=== PATIENT | female | born 1980 | race Caucasian/White ===

== ENCOUNTER → 2019-10-09 13:48 | Outpatient (CLI) | payer BC, SELFPAY ==
--- NOTE | ~2019-10-09 | MMUS_ITS ---
EXAMINATION: MM diagnostic [place] LT w jaylin, US breast LT limited HISTORY: Left breast pain TECHNIQUE: ML, MLO and cc 3-D tomosynthesis images of the left breast were performed and synthetic 2- D images were generated. CAD analysis was submitted and interpreted. High resolution targeted left br east ultrasound was performed. COMPARISON: 02/05/2015 diagnostic left digital mammogram and complete left breast ultrasound examinati on BREAST PARENCHYMAL COMPOSITION: There are scattered areas of fibroglandular density. FINDINGS: MAMMOGRAPHIC FINDINGS: No suspicious mass or architectural distortion, malignant calcification, skin thickening or retractio n or significant new or developing density is detected. ULTRASOUND: There is no evidence of focal abnormal solid or cystic lesion or suspicious shadowing in the area of clinical complaint of left breast pain at 3:00. IMPRESSION: 1. No mammographic evidence of malignancy 2. Routine annual mammographic screening is recommended. BI-RADS Category 1: Negative Reviewed, dictated and finalized at location A. [facility] [employer] IMPRESSION: 1. No mammographic evidence of malignancy 2. Routine annual mammographic screening is recommended. BI-RADS Category 1: Negative
== END ==
PROVIDERS: PCP Family Medicine; Visit Provider Obstetrics & Gynecology
DX: N64.4 Mastodynia (principal)
CPT/HCPCS: 76642; 77061; 77065; G0279

== ENCOUNTER → 2019-11-28 10:29 | Outpatient (CLI) | payer BC, SELFPAY ==
--- NOTE | ~2019-11-28 | XR_ITS ---
XR ankle LT 2V DATE: 11/28/2019 11:12 INDICATION: Left ankle pain TECHNIQUE: AP and lateral views COMPARISON: None FINDINGS: No fracture or dislocation of the ankle or disruption of the ankle mortise. No periosteal r eaction or bone destruction. IMPRESSION: Negative Reviewed, dictated and finalized at location B. IMPRESSION: Negative
--- NOTE | ~2019-11-28 | XR_ITS ---
XR sacroiliac joints min 3V DATE: 11/28/2019 11:12 INDICATION: Sacroiliac pain TECHNIQUE: AP and oblique views COMPARISON: None FINDINGS: Normal sacroiliac joints. No erosive change or ankylosis. IMPRESSION: Negative Reviewed, dictated and finalized at Location A. Reviewed, dictated and finalized at location B. IMPRESSION: Negative
--- NOTE | ~2019-11-28 | XR_ITS ---
XR foot RT 2V DATE: 11/28/2019 11:12 INDICATION: Right foot pain TECHNIQUE: AP and lateral views COMPARISON: None FINDINGS: Hallux valgus and bunion deformity. No fracture, dislocation, periosteal reaction or bone destruction. IMPRESSION: Hallux valgus and bunion deformity Reviewed, dictated and finalized at location B.
--- NOTE | ~2019-11-28 | XR_ITS ---
XR wrist RT 2V DATE: 11/28/2019 11:12 INDICATION: Right wrist pain TECHNIQUE: AP and lateral views COMPARISON: None FINDINGS: No fracture or dislocation, periosteal reaction or bone destruction, joint space narrowing, erosive change or chondrocalcinosis. IMPRESSION: Negative Reviewed, dictated and finalized at location B. IMPRESSION: Negative
--- NOTE | ~2019-11-28 | XR_ITS ---
XR foot LT 2V DATE: 11/28/2019 11:12 INDICATION: Left foot pain TECHNIQUE: AP and lateral views COMPARISON: None FINDINGS: Hallux valgus and bunion deformity. No fracture, dislocation, periosteal reaction or bone destruction. No erosive change. IMPRESSION: Hallux valgus and bunion deformity Reviewed, dictated and finalized at location B.
--- NOTE | ~2019-11-28 | XR_ITS ---
XR wrist LT 2V DATE: 11/28/2019 11:12 INDICATION: Left wrist pain TECHNIQUE: AP and lateral views COMPARISON: None FINDINGS: No fracture, dislocation, periosteal reaction or bone destruction, joint space narrowing, e rosive change or chondrocalcinosis. IMPRESSION: Negative Reviewed, dictated and finalized at location B. IMPRESSION: Negative
--- NOTE | ~2019-11-28 | XR_ITS ---
XR hand LT 2V DATE: 11/28/2019 11:12 INDICATION: Left hand pain TECHNIQUE: AP and lateral views COMPARISON: None FINDINGS: No fracture, dislocation, periosteal reaction or bone destruction, erosive change or chondr ocalcinosis. Joint spaces are preserved. IMPRESSION: Negative Reviewed, dictated and finalized at location B. IMPRESSION: Negative
--- NOTE | ~2019-11-28 | XR_ITS ---
XR chest 2V DATE: 11/28/2019 11:12 INDICATION: Polyarticular arthralgia. Myalgia. Malaise, fatigue. TECHNIQUE: PA and lateral views COMPARISON: 01/25/2015 CT pulmonary scan FINDINGS: Normal heart size. No hilar or mediastinal enlargement. No pulmonary infiltrate or consolid ation, pleural effusion or pulmonary vascular congestion or pneumothorax. Included skeletal structure s are unremarkable. IMPRESSION: Negative Reviewed, dictated and finalized at location B. IMPRESSION: Negative
--- NOTE | ~2019-11-28 | XR_ITS ---
XR ankle RT 2V DATE: 11/28/2019 11:12 INDICATION: Right ankle pain TECHNIQUE: 2 views COMPARISON: None FINDINGS: No fracture or dislocation of the ankle or disruption of the ankle mortise. No periosteal r eaction or bone destruction. IMPRESSION: Negative Reviewed, dictated and finalized at location B. IMPRESSION: Negative
--- NOTE | ~2019-11-28 | XR_ITS ---
XR hand RT 2V DATE: 11/28/2019 11:12 INDICATION: Right hand pain TECHNIQUE: AP and lateral views COMPARISON: None FINDINGS: No fracture, dislocation, periosteal reaction or bone destruction, joint space narrowing, e rosive change or chondrocalcinosis. IMPRESSION: Negative Reviewed, dictated and finalized at location B. IMPRESSION: Negative
== END ==
PROVIDERS: PCP Family Medicine; Visit Provider Internal Medicine Rheumatology
DX: M79.10 Myalgia, unspecified site (principal); R53.81 Other malaise; R53.83 Other fatigue; M20.12 Hallux valgus (acquired), left foot; M20.11 Hallux valgus (acquired), right foot
CPT/HCPCS: 71046; 72202; 73100; 73120; 73600; 73620

== ENCOUNTER → 2020-04-21 14:19 | Outpatient (CLI) | payer BC, SELFPAY ==
--- NOTE | ~2020-04-21 | MR_ITS ---
EXAMINATION: MR wrist LT wo/w con DATE: 04/21/2020 15:24 INDICATION: Multiple joint pain. Left hand pain and swelling. TECHNIQUE: Magnetic resonance imaging (MRI) of the wrist was performed without and with 20 mL MultiHa nce intravenous contrast. Sequences included axial T1-weighted FS FSE, axial and coronal T2-weighted FS FSE, and axial, coronal, and sagittal T1-weighted FSE, PD-weighted FS FSE, and postcontrast T1-carlos ghted FS FSE. COMPARISON: Left wrist radiographs 11/28/2019 FINDINGS: Intrinsic ligaments: Scapholunate ligament and lunotriquetral ligament are intact. Triangular fibrocartilage complex (TFCC): Triangular fibrocartilage is intact. Extensor wrist: The extensor tendons are normal. Flexor wrist: The flexor tendons are normal. Median nerve is normal. Guyon's canal: Ulnar nerve is normal. Bones/other: Bone alignment is normal. No fracture. There is a 3 mm lesion of increased T2-weighted signal intensi ty in triquetrum that may be an enchondroma. The joint spaces are normal. There is no enhancing synov itis. There is a skin marker at the palmar hand without local abnormality. IMPRESSION: 1. No arthritis or synovitis. Reviewed, dictated and finalized at location B.
[2020-04-21 14:41] LABS: Estimated Glomerular Filt Rate > 60
== END ==
DX: M25.50 Pain in unspecified joint (principal); R79.82 Elevated C-reactive protein (CRP); M79.89 Other specified soft tissue disorders; M79.642 Pain in left hand
CPT/HCPCS: 73223; A9577

== ENCOUNTER 2020-06-21 20:45 | Observation (INO) | payer BC, SELFPAY ==
[2020-06-21] VITALS (17 sets, daily range): BP systolic 105–133; BP diastolic 38–98; PULSE 69–92; RESP 18–20; TEMP 36.1; O2SAT 98–100
--- NOTE | ~2020-06-21 | XR_ITS ---
XR abdomen obstructive series DATE: 06/23/2020 06:52 INDICATION: Bowel obstruction TECHNIQUE: Portable supine and upright AP views COMPARISON: 06/22/2020 Portable KUB for NG tube 06/21/[address] abdomen pelvis FINDINGS: Surgical clips overlie the left upper quadrant. Surgical clips overlie the right upper quad rant, consistent with cholecystectomy. No evidence of bowel obstruction. There is a prominent amount fecal material in the left colon. The p soas shadows are intact. No visceromegaly is evident. No intraperitoneal free air is detected. Heart size appears normal. The lung bases appear clear. Mild thoracic and lumbar scoliosis. IMPRESSION: Postoperative changes No evidence of bowel obstruction or intraperitoneal free air Reviewed, dictated and finalized at Location A. Reviewed, dictated and finalized at location A.
--- NOTE | ~2020-06-21 | XR_ITS ---
EXAMINATION: XR abdomen NG/feed tube insert DATE: 06/22/2020 00:03 INDICATION: Nasogastric tube insertion TECHNIQUE: A supine view of the abdomen and lower chest was obtained for evaluation of feeding tube placement. COMPARISON: CT dated 06/21/2020 FINDINGS: Is a gastric tube tip in proximal side port in the proximal body of the stomach which remains distend ed with gas and debris. No dilated loops of gas-filled bowel to suggest obstruction. Cholecystectomy clips in the right upper quadrant, likely dropped clip in the right lower quadrant and several additi onal surgical clips in the left upper quadrant. Lung bases are clear. Heart size is normal. Mild lumb ar dextrocurvature. IMPRESSION: 1. Nasogastric tube in the stomach. Reviewed, dictated and finalized at location A.
--- NOTE | ~2020-06-21 | CT_ITS ---
EXAMINATION: CT abdomen pelvis w con DATE: 06/21/2020 21:56 INDICATION: Epigastric pain. TECHNIQUE: Computed tomography (CT) of the abdomen and pelvis was performed with 100 mL Omnipaque-350 intravenous contrast. Automated exposure control and iterative reconstruction technique were employe d. The dose-length product was 1032.23 mGy-cm. COMPARISON: 08/01/2018 FINDINGS: Lung bases are clear. Heart size is normal. No pericardial or pleural effusion. Small region of focal hepatic steatosis along the ligamentum teres. Cholecystectomy clips at the gallbladder fossa. 1.7 cm right renal cyst. 2 mm nonobstructing stone in the mid right kidney. Left kidney is normal. Pancreas and bilateral adrenal glands. Splenomegaly measuring 15.7 cm in craniocaudal length. There are sever al surgical clips along a region of architectural distortion to the wall of the gastric antrum sugges ting prior surgery this appears to result in some narrowing of the lumen, unclear whether fixed or tr ansient. There is however distention of the more proximal gastric body which is filled with fluid and debris and suggests possibility of some degree of obstruction at the level of the surgical changes. Moderate amount of stool scattered throughout the colon. No abnormal bowel wall thickening or dilated bowel to suggest obstruction. Normal appendix. Bladder, retroverted uterus and bilateral adnexa are unremarkable. Low density likely contraceptive ring at the vaginal vault. Small fat-containing umbili neha hernia. A few scattered small bone islands in the sacrum and pelvis. IMPRESSION: 1. 2 mm nonobstructing right renal stone. 2. Distention of the gastric body proximal to a region of architectural distortion with surgical clip s and resulting in some luminal narrowing at the gastric antrum and could not extrude some degree of obstruction at this level. Correlate with surgical history. Could consider further evaluation with en doscopy as clinically indicated. Reviewed, dictated and finalized at location A. IMPRESSION: 1. 2 mm nonobstructing right renal stone. 2. Distention of the gastric body proximal to a region of architectural distort ion with surgical clips and resulting in some luminal narrowing at the gastric antrum and could not extrude some degree of obstruction at this level. Correlat e with surgical history. Could consider further evaluation with endoscopy as cl inically indicated.
--- NOTE | 2020-06-21 21:19 | PC.NURSE ---
Urine bedside test was done. Test is negative. Patient's RN notified of this result. Unable to chart this in the EMR. Blood and urine were sent to the lab at this time. Lab was notified that urine is coming down with [facility] patient label but does not have scannable label. Unable to gunner the urine as collected in the EMR so unable to print specimen labels in [facility]. Mala from [facility] was also called and notified that urine was unable to be charted in the EMR but that the test was negative and the patient would be able to go to CT.
[2020-06-21 21:23] LABS: Basophils Absolute Auto 0.1 K/mm3 (0.0-0.1); Basophils Percent Auto 0.6 % (0.2-1.2); Eosinophils Absolute Auto 0.3 K/mm3 (0-0.3); Eosinophils Percent Auto 2.6 % (0-4.4); Hematocrit 40.3 % (37.0-47.0); Hemoglobin 13.5 g/dL (12.0-15.0); Immature Granulocyte Absolute 0.05 K/mm3 (0.00-0.031); Immature Granulocyte Percent A 0.5 % (0-0.5); Lymphocytes Absolute Auto 3.32 K/mm3 (0.9-3.2); Lymphocytes Percent Auto 34.4 % (18.3-44.2); Mean Corpuscular HGB Conc 33.5 g/dl (32-36); Mean Corpuscular Hemoglobin 30.1 pg (26-34); Mean Platelet Volume 10.4 fl (7.4-10.4); Monocytes Absolute Auto 0.6 K/mm3 (0.1-0.6); Monocytes Percent Auto 5.8 % (2.6-8.5); Neutrophils Absolute Auto 5.4 K/mm3 (1.3-6.7); Neutrophils Percent Auto 56.1 % (45.5-73.1); Platelet Count Result 236 k/mm3 (150-375); Red Blood Count 4.48 M/mm3 (4.2-5.4); Red Cell Distribution Width 12.7 % (11.5-14.5); White Blood Count 9.7 K/mm3 (4.5-10.0)
--- NOTE | 2020-06-21 21:25 | ED.ABDPAIN ---
HPI - Abdominal Pain General Chief Complaint: Abdominal Pain Stated Complaint: upper abdominal pain to left flank Time Seen by Provider: 06/21/20 21:02 Source: RN notes reviewed History of Present Illness HPI narrative: Patient presents emergency department from home for abdominal pain. Patient states that for the past 1 month every evening proximally 2 hours after eating she has pain in her left upper abdomen with radiation around to her flank. Is associated with nausea and vomiting. Patient has a history of a gastric sleeve placed by GI at [facility] the beginning of April. She has been seeing her GI who has been working her up for the symptoms and had lab work ordered Tuesday that is not been done at this time. Patient states she is taken no previous pain medication or nausea medication at home. She denies any fevers or chills chest pain shortness of breath or any other symptoms. Related Data Allergies Allergy/AdvReac Type Severity Reaction Status Date / Time hydrocodone Allergy Intermediate Hives Verified 06/21/20 22:11 oseltamivir Allergy Intermediate Difficulty Verified 06/21/20 22:11 Breathing oxycodone Allergy Intermediate Hives Verified 06/21/20 22:11 Penicillins Allergy Intermediate Hives Verified 06/21/20 22:11 Review of Systems Review of Systems: Narrative: Gen.: Denies fevers or chills ENT: Denies congestion Respiratory: Denies shortness of breath or cough CV: Denies chest pain or palpitations GI: See HPI denies burning, urgency, frequency or hematuria Musculoskeletal: Denies back pain or muscle pain Neuro: Denies numbness, tingling, weakness or focal weakness Skin: Denies rash Except as documented, all other systems reviewed and negative [facility] Past Medical History Medical History (Updated 06/22/20 @ 03:12 by Florentino Dubon DO) Migraines Family History Family History (Updated 04/13/10 @ 13:18 by DOCTOR UNKNOWN) Other Diabetes mellitus Family history of cardiovascular disease Family history of malignant neoplasm Family history of osteoarthritis Family history of transient ischemic attacks Social History Social History (Updated 06/21/20 @ 21:26 by Florentino Dubon DO) Smoking status: Never smoker Alcohol intake: current Exam Narrative: Exam Narrative: APPEARANCE: No acute distress, nontoxic, resting in bed HEENT: Normocephalic, atraumatic, OMM RESPIRATORY: No respiratory distress, clear to auscultation bilaterally with no rhonchi wheezing or rales CARDIOVASCULAR: RRR s murmur ABDOMINAL: Soft, nondistended, tender palpation right upper quadrant left upper quadrant, no tenderness right lower quadrant left lower quadrant no rebound or guarding MUSCULOSKELETAl: Moves all extremities. No clubbing, cyanosis or edema. NEURO: Awake and alert. Following commands, speech normal, no focal deficits SKIN:: Warm, dry. Normal Color PSYCHIATRIC: Normal affect/mood Course Course Emergency Course: Patient is followed by GI Dr. Mauricio at [facility]. Called and discussed with GI on-call Dr. Mikael Lambert who accepts patient to his service at [place]. Request patient have NG placed at this time With patient plan for transfer my discussion with GI in agreement at this time Patient with NG tube placed in the emergency department. The patient is unable to tolerate the NG tube. Having anxiety attack tearful crying wanting to out. The patient was given Ativan with no relief. Patient states slightly shaky the NG tube is if we sedate her. Discussed with the patient's risks and benefits of the NG tube as well as my conversations with GI. Discussed risk of aspiration has continued nausea vomiting. At this time patient patient requesting to have his NG tube after risks and benefits discussed with the patient and will removed at this time 06/22/201914 care turned back over to myself at shift change patient seen evaluate myself resting in bed does note some mild abdominal pain. Awaiti
[2020-06-21] MEDS: SODIUM CHLORIDE 0.9% IV 1,000 ML 999 ML IV CONT (21:27)
[2020-06-21] MEDS: ONDANSETRON INJ 4 MG/2 ML VIAL IV PUSH (21:27)
[2020-06-21 21:36] LABS: Add Urine Microscopic? NO; Alanine Aminotransferase 14 U/L (4-35); Albumin Level 4.1 g/dL (3.5-5.1); Alkaline Phosphatase 82 U/L (38-126); Anion Gap 9 mmol/L (8-16); Appearance Urine Clear (Clear); Aspartate Amino Transferase 17 U/L (14-36); Bilirubin Urine Negative (Negative); Bilirubin,Total 0.2 mg/dL (0.2-1.3); Blood Urea Nitrogen 14 mg/dL (7-17); Blood Urine Negative (Negative); Calcium 9.3 mg/dL (8.4-10.2); Carbon Dioxide 28 mmol/L (22-30); Chloride 102 mmol/L (98-107); Color Urine Yellow (Yellow); Estimated CRCL calculation 119 ml/min; Estimated Glomerular Filt Rate > 60; Glucose 154 mg/dL (65-105); Glucose Urine UA Negative (Negative); Ketones Urine Negative (Negative); Leukocyte Esterase Ur Negative LEU/UL (Negative); Lipase 118 U/L (23-300); Nitrate Urine Negative (Negative); Potassium 3.6 mmol/L (3.4-5.0); Protein Urine Negative (Negative); Sodium 139 mmol/L (137-145); Urobilinogen Urine Negative mg/dL (<2.0)
[2020-06-21] MEDS: PROMETHAZINE HCL 25 MG/ML AMPUL 12.5 MG IV PUSH (22:33)
[2020-06-21] MEDS: MORPHINE SULFATE (*CRX) 4 MG/ML INJ IV PUSH (22:34)
[2020-06-22] VITALS (44 sets, daily range): BP systolic 83–152; BP diastolic 45–88; PULSE 67–99; RESP 16–20; O2SAT 93–100
[2020-06-22] MEDS: LORazepam INJ (*CRX) 2 MG/ML VIAL 0.5 MG IV PUSH (00:06)
--- NOTE | 2020-06-22 00:55 | PC.NURSE ---
Pt very anxious and crying over having the NG tube in. After conversation with the dr about the risks, the pt wanted the NG tube removed.
[2020-06-22] MEDS: SODIUM CHLORIDE 0.9% IV 1,000 ML 125 ML IV CONT ×2 (04:49→16:35)
[2020-06-22] MEDS: HYDROmorphone HCL INJ (*CRX) 1 MG/ML SYR 0.5 MG IV PUSH ×2 (07:50→20:24)
--- NOTE | 2020-06-22 10:35 | PC.NURSE ---
called [facility] to touch base about an availble bed. at this time there is no bed. they are waiting on discharges for an open bed
--- NOTE | 2020-06-22 11:17 | PC.NURSE ---
Resting on cart. Awaiting bed at [facility].
[2020-06-22] MEDS: ONDANSETRON INJ 4 MG/2 ML VIAL IV PUSH (12:42)
--- NOTE | 2020-06-22 13:03 | PC.NURSE ---
called [facility] to find out about a bed. still no bed available
[2020-06-22] MEDS: PANTOPRAZOLE SODIUM IV 40 MG VIAL IV PUSH (20:24)
[2020-06-23] MEDS: LORazepam INJ (*CRX) 2 MG/ML VIAL 0.5 MG IV PUSH (01:13)
--- NOTE | 2020-06-23 02:54 | PC.NURSE ---
called [facility] to inquire about the Bed. Still waiting.
[2020-06-23 04:53] VITALS: BP 106/72; PULSE 62; RESP 16; O2SAT 99
[2020-06-23 06:38] VITALS: BP 102/68; PULSE 78; RESP 16; O2SAT 98
[2020-06-23 07:22] LABS: Alanine Aminotransferase 11 U/L (4-35); Albumin Level 3.2 g/dL (3.5-5.1); Alkaline Phosphatase 75 U/L (38-126); Anion Gap 6 mmol/L (8-16); Aspartate Amino Transferase 16 U/L (14-36); Bilirubin,Total 0.2 mg/dL (0.2-1.3); Blood Urea Nitrogen 6 mg/dL (7-17); Calcium 8.1 mg/dL (8.4-10.2); Carbon Dioxide 24 mmol/L (22-30); Chloride 108 mmol/L (98-107); Estimated CRCL calculation 161 ml/min; Estimated Glomerular Filt Rate > 60; Glucose 93 mg/dL (65-105); Potassium 3.6 mmol/L (3.4-5.0); Sodium 138 mmol/L (137-145)
[2020-06-23 07:29] LABS: Basophils Percent Auto 0.4 % (0.2-1.2); Eosinophils Absolute Auto 0.2 K/mm3 (0-0.3); Eosinophils Percent Auto 1.9 % (0-4.4); Hematocrit 37.2 % (37.0-47.0); Hemoglobin 12.2 g/dL (12.0-15.0); Immature Granulocyte Absolute 0.02 K/mm3 (0.00-0.031); Immature Granulocyte Percent A 0.3 % (0-0.5); Lymphocytes Absolute Auto 2.87 K/mm3 (0.9-3.2); Lymphocytes Percent Auto 36.3 % (18.3-44.2); Mean Corpuscular HGB Conc 32.8 g/dl (32-36); Mean Corpuscular Hemoglobin 29.6 pg (26-34); Mean Corpuscular Volume 90.3 fl (80-100); Mean Platelet Volume 10.4 fl (7.4-10.4); Monocytes Absolute Auto 0.6 K/mm3 (0.1-0.6); Neutrophils Absolute Auto 4.3 K/mm3 (1.3-6.7); Neutrophils Percent Auto 54.1 % (45.5-73.1); Platelet Count Result 191 k/mm3 (150-375); Red Blood Count 4.12 M/mm3 (4.2-5.4); Red Cell Distribution Width 12.9 % (11.5-14.5); White Blood Count 7.9 K/mm3 (4.5-10.0)
[2020-06-23 07:40] VITALS: BP 102/68; PULSE 78; RESP 16; O2SAT 98
--- NOTE | 2020-06-23 07:50 | ADMGEN ---
This patient, Torrie Castellanos, was admitted to Medical Room 249-01. Patient/family oriented to hospital policies and general routines including ID bracelet, bed and alarms, visiting hours, pain management, procedures, bathroom and other care routines, personal items, smoking policy, room service/diet, and visiting hours. Information on how to activate the Rapid Response Team has been discussed. Patient/Family are encouraged to report perceived risks to care and to ask questions if they do not understand what they are told or what they should do.
[2020-06-23] MEDS: SODIUM CHLORIDE 0.9% IV 1,000 ML 125 ML IV CONT (08:37)
[2020-06-23] MEDS: ONDANSETRON INJ 4 MG/2 ML VIAL IV PUSH (08:38)
[2020-06-23 09:00] VITALS: BP 97/44; PULSE 68; RESP 18; TEMP 36.2; O2SAT 98; BMI 36.5
--- NOTE | 2020-06-23 11:16 | WPDGICN ---
Assessment and Plan Assessment and plan (1) Gastric outlet obstruction: Code(s): K31.1 - Adult hypertrophic pyloric stenosis Status: Acute Assessment and Plan: Patient appears to have gastric outlet obstruction on the basis of recent endoscopic gastric sleeve procedure. This is been performed in followed at [facility]. This not a procedure performed in our hospital. Patient has refused NG tube. Plan is for patient be NPO. A liquid diet will be allowed as tolerated. And transfer or follow-up at [facility] for follow-up EGD is advised. This needs to be accomplished at [facility] center where this is performed currently. We will follow with you in the interim. IV fluid rehydration until we are certain she can tolerate a liquid diet. GI Consult Note Consult date/time: 06/23/20 11:16 HPI: Torrie Castellanos is a 39 year old female seen in evaluation at the request of the emergency room. Patient has a history of obesity. Followed at [facility] by Dr. Mauricio. Patient underwent an endoscopic gastric sleeve procedure on April 29, 2020. Over the last 3-4 weeks she has had persistent abdominal pain associated with nausea vomiting. It was felt likely that the gastric sleeve procedure has cause swelling and subsequent gastric outlet obstruction. Patient recently has been treated empirically with Carafate proton pump inhibitors etc with no response. Yesterday she present to the emergency room. Again CT scan suggesting gastric outlet obstruction. It was anticipated patient will be transferred to [facility] hospital but this has been delayed because of hopeful the hospital is at this time. Review of Systems Review of Systems: All systems reviewed & are unremarkable except as noted in HPI and below PMFSH Past Medical History Medical History (Updated 06/22/20 @ 03:12 by Florentino Dubon DO) Migraines Family History Family History (Updated 04/13/10 @ 13:18 by DOCTOR UNKNOWN) Other Diabetes mellitus Family history of cardiovascular disease Family history of malignant neoplasm Family history of osteoarthritis Family history of transient ischemic attacks Social History Social History (Updated 06/21/20 @ 21:26 by Florentino Dubon DO) Smoking status: Never smoker Second hand tobacco smoke exposure: Yes Alcohol intake: never Substance use: never Gender identity (if verbalized by the patient): Female Sexual Orientation (if Verbalized by the Patient): Straight or Heterosexual Spiritual care concerns: No Meds Home Medications and Allergies Home Medications Medication Instructions Recorded Confirmed Type alprazolam 1 mg PO BID PRN 06/23/20 06/23/20 History eszopiclone 2 mg PO HS 06/23/20 06/23/20 History omeprazole 40 mg PO BID 06/23/20 06/23/20 History rimegepant [Nurtec ODT] 75 mg PO ONCE PRN 06/23/20 06/23/20 History sucralfate [Carafate] 1 g PO QID 06/23/20 06/23/20 History trazodone 200 mg PO HS 06/23/20 06/23/20 History Allergies Allergy/AdvReac Type Severity Reaction Status Date / Time hydrocodone Allergy Intermediate Hives Verified 06/23/20 08:39 oseltamivir Allergy Intermediate Difficulty Verified 06/23/20 08:39 Breathing oxycodone Allergy Intermediate Hives Verified 06/23/20 08:39 Penicillins Allergy Intermediate Hives Verified 06/23/20 08:39 Vital Signs Vital Signs - 24 hr 06/22/20 14:36 06/22/20 18:21 06/22/20 23:28 Temperature Pulse Rate 80 81 78 Respiratory Rate 20 16 16 Blood Pressure 95/60 L 107/53 L 108/62 Pulse Oximetry 99 98 99 06/23/20 04:53 06/23/20 06:38 06/23/20 07:40 Temperature Pulse Rate 62 78 78 Respiratory Rate 16 16 16 Blood Pressure 106/72 102/68 102/68 Pulse Oximetry 99 98 98 06/23/20 09:00 Temperature 97.2 F L Pulse Rate 68 Respiratory Rate 18 Blood Pressure 97/44 L Pulse Oximetry 98 Exam Narrative: Exam Narrative: Physical exam reveals patient to be alert. Vital signs are stable. HEENT exam reveals her to be anicteric. Lungs
--- NOTE | 2020-06-23 13:16 | PM.SD ---
Same Day Admit/Disch: HPI History of Present Illness Chief complaint: gastric outlet obstruction Narrative: Torrie Castellanos is a 39 year old female with PMH significant for gastric sleeve 04/29/[address] Sandoval at [facility], small fiber neuropathy, migraines, and POTS who presented to the emergency department 06/21/20 for the evaluation of abdominal pain for 5 weeks which started after her gastric sleeve. She noted that pain develops 2 hours after eating and is located in the epigastric/left upper abdomen with radiation to the flank. Pain is burning, sharp, and cramping in nature. She noted the onset of associated nausea and vomiting. She discussed her symptoms with her GI specialist who recommended carafate and PPI which gave minimal relief in symptoms. She notes that she ate ramen and subsequently vomited 6-7x prompting her visit to the emergency department. Initial workup in the emergency department included CT abd/pelvis which showed distention of the gastric body proximal to her gastric sleeve with narrowing at the antrum suggesting some degree of obstruction at this level. The emergency department provider contacted [facility] and she was accepted for transfer there. NG tube was placed in the emergency department but the patient did not tolerate the NG tube due to significant anxiety and this was removed in the ED. She was admitted to the hospitalist service with GI consultation 06/23/20 as a bed was still not available at [facility]. At the time of my evaluation, she felt much better with minimal pain. The case was discussed with Dr. Sandoval, her GI specialist, who reviewed her CT abd/pelvis. He recommended that she begin a trial of clear liquids. If she was able to tolerate clear liquids, he recommended she discharge home and follow-up the following day outpatient for an outpatient EGD due to lack of bed availability. [facility] Past Medical History Medical History (Updated 06/30/20 @ 11:24 by Conchita Tinajero PA-C) History of herniated intervertebral disc Migraines POTS (postural orthostatic tachycardia syndrome) Small fiber neuropathy Surgical History Surgical History (Updated 06/30/20 @ 11:24 by Conchita Tinajero PA-C) History of gastric restrictive surgery S/P lap band in 2008 which was removed in 2013. S/P Gastric sleeve by Dr. Sandoval 04/29/20 at [facility]. S/P cholecystectomy Family History Family History (Updated 06/30/20 @ 11:27 by Conchita Tinajero PA-C) Mother Depression Anxiety COPD (chronic obstructive pulmonary disease) Grandparent Diabetes mellitus Family history of cardiovascular disease Grandparent Lung cancer TIA (transient ischemic attack) Social History Social History (Updated 06/30/20 @ 11:29 by Conchita Tinajero PA-C) Social History: Mrs. Castellanos lives at home with her in [place], [place]. She has two children. 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 Smoking status: Never smoker Second hand tobacco smoke exposure: Yes Alcohol intake: never Substance use: never Gender identity (if verbalized by the patient): Female Sexual Orientation (if Verbalized by the Patient): Straight or Heterosexual Spiritual care concerns: No Same Day Admit/Disch: Med Pre-admit Medications Home Medications Medication Instructions Recorded Confirmed Type Nurtec ODT 75 mg PO ONCE PRN 06/23/20 06/23/20 History alprazolam 1 mg PO BID PRN 06/23/20 06/23/20 History eszopiclone 2 mg PO HS 06/23/20 06/23/20 History omeprazole 40 mg PO BID 06/23/20 06/23/20 History sucralfate [Carafate] 1 g PO QID 06/23/20 06/23/20 History trazodone 200 mg PO HS 06/23/20 06/23/20 History Exam Narrative: Exam Narrative: Vitals at presentation: Temp Pulse Resp BP Pulse Ox 97.0 F L 92 20
[2020-06-23 13:52] VITALS: BP 110/56
[2020-06-23 13:59] VITALS: BP 105/53; PULSE 68; RESP 16; TEMP 36.6; O2SAT 100
== END 2020-06-23 15:07 | disposition home or self-care (01) ==
LOC: ANHED 06-23 06:44 → ANH2MED 06-23 07:15
PROVIDERS: Admitting Provider Family Medicine; Emergency Provider Emergency Medicine; PCP Family Medicine; Visit Provider Family Medicine
DX: K31.1 Adult hypertrophic pyloric stenosis (principal); Z98.84 Bariatric surgery status
CPT/HCPCS: 36415; 74019; 74177; 80053; 81003; 81025; 83690; 85025; 96361; 96365; 96375; 96376; 99285; C9113; G0378; J0131; J1170; J2060; J2270; J2405; J2550; J7030; Q9967

== ENCOUNTER → 2021-03-12 11:34 | Outpatient (CLI) | payer BC, SELFPAY ==
--- NOTE | ~2021-03-12 | US_ITS ---
EXAMINATION: US venous doppler [facility] DATE: 03/12/2021 12:09 INDICATION: Left calf pain. TECHNIQUE: Grayscale ultrasound images without and with compression and Doppler ultrasound images of the left lower extremity veins were obtained. COMPARISON: Ultrasound 12/03/2016 FINDINGS: The visualized portions of left common femoral vein, profunda (deep) femoral vein, femoral vein, popl iteal vein, peroneal veins, posterior tibial veins, and greater saphenous vein outflow are patent. IMPRESSION: 1. No deep venous thrombosis. Reviewed, dictated and finalized at location A.
== END ==
PROVIDERS: PCP Family Medicine; Visit Provider Chiropractor
DX: M79.662 Pain in left lower leg (principal)
CPT/HCPCS: 93971

== ENCOUNTER 2021-09-25 13:08 | Outpatient (CLI) | payer BC, SELFPAY ==
--- NOTE | ~2021-09-25 | MR_ITS ---
EXAMINATION: MR sacroiliac jts wo/w con DATE: 09/25/2021 14:27 INDICATION: Sacroiliac joint pain. TECHNIQUE: Magnetic resonance imaging (MRI) of the sacroiliac joints was performed without and with 2 0 mL MultiHance intravenous contrast. Sequences included sagittal PD-weighted FS FSE, axial T1-weight ed FSE and T2-weighted FS FSE, coronal oblique T1-weighted FSE, T2-weighted FS FSE, and T2-weighted F SE, axial T1-weighted FS FSE, and postcontrast axial and coronal oblique T1-weighted FS FSE. COMPARISON: CT abdomen and pelvis 06/21/2020 FINDINGS: There are fibroids in uterus measuring up to 11 mm. There is physiologic fluid in the pelvi s. Bone alignment is normal. No fracture. There are benign bone islands in the pelvis. There is mild osteoarthritis of the sacroiliac joints. There is mild lower lumbar spondylosis. IMPRESSION: 1. Mild osteoarthritis of the sacroiliac joints. No evidence of inflammatory arthropathy. Reviewed, dictated and finalized at location A. [employer] IMPRESSION: 1. Mild osteoarthritis of the sacroiliac joints. No evidence of inflammatory ar thropathy.
[2021-09-25 13:40] LABS: Estimated Glomerular Filt Rate > 60
== END 2021-09-25 13:09 | disposition home or self-care (01) ==
PROVIDERS: PCP Family Medicine
DX: M53.3 Sacrococcygeal disorders, not elsewhere classified (principal)
CPT/HCPCS: 72197; A9577

== ENCOUNTER 2021-11-09 11:04 | Outpatient (CLI) | payer BC, SELFPAY ==
--- NOTE | 2021-11-09 12:18 | ECG_ITS ---
Measurements Intervals [place] Rate: 72 P: 46 GA: 157 QRS: 29 QRSD: 88 T: 15 QT: 392 QTc: 432 Interpretive Statements SINUS RHYTHM NONSPECIFIC T-WAVE ABNORMALITY COMPARED TO ECG 11/28/2018 21:16:08 NO SIGNIFICANT CHANGE Electronically Signed On 11-09-2021 14:33:52 CDT by Pelon Richmond M.D.
[2021-11-09 13:39] LABS: Basophils Percent Auto 0.5 % (0.2-1.2); Eosinophils Absolute Auto 0.1 K/mm3 (0-0.3); Eosinophils Percent Auto 0.9 % (0-4.4); Hematocrit 41.3 % (37.0-47.0); Hemoglobin 13.8 g/dL (12.0-15.0); Immature Granulocyte Absolute 0.02 K/mm3 (0.00-0.031); Immature Granulocyte Percent A 0.3 % (0-0.5); Lymphocytes Percent Auto 31.3 % (18.3-44.2); Mean Corpuscular HGB Conc 33.4 g/dl (32-36); Mean Corpuscular Hemoglobin 29.7 pg (26-34); Mean Corpuscular Volume 88.8 fl (80-100); Mean Platelet Volume 10.7 fl (7.4-10.4); Monocytes Absolute Auto 0.5 K/mm3 (0.1-0.6); Monocytes Percent Auto 6.6 % (2.6-8.5); Neutrophils Absolute Auto 4.6 K/mm3 (1.3-6.7); Neutrophils Percent Auto 60.4 % (45.5-73.1); Platelet Count Result 214 k/mm3 (150-375); Red Blood Count 4.65 M/mm3 (4.2-5.4); Red Cell Distribution Width 13.5 % (11.5-14.5); White Blood Count 7.7 K/mm3 (4.5-10.0)
[2021-11-09 13:46] LABS: Prothrombin Time 13.2 Seconds (11.1-14.7)
[2021-11-09 13:47] LABS: Partial Thromboplastin Time 26.9 SECONDS (22.3-36.8)
[2021-11-09 13:48] LABS: Alanine Aminotransferase 11 U/L (4-35); Albumin Level 4.2 g/dL (3.5-5.1); Alkaline Phosphatase 75 U/L (38-126); Anion Gap 6 mmol/L (8-16); Aspartate Amino Transferase 20 U/L (14-36); Bilirubin,Total 0.2 mg/dL (0.2-1.3); Blood Urea Nitrogen 13 mg/dL (7-17); Calcium 8.8 mg/dL (8.4-10.2); Carbon Dioxide 28 mmol/L (22-30); Chloride 104 mmol/L (98-107); Estimated Glomerular Filt Rate > 60; Glucose 88 mg/dL (65-110); Potassium 4.4 mmol/L (3.4-5.0); Sodium 138 mmol/L (137-145)
== END 2021-11-09 11:05 | disposition home or self-care (01) ==
LOC: ANHSURGERY 11:07
PROVIDERS: PCP Family Medicine; Visit Provider Urology
DX: Z01.818 Encounter for other preprocedural examination (principal); N81.2 Incomplete uterovaginal prolapse; I49.9 Cardiac arrhythmia, unspecified; N39.3 Stress incontinence (female) (male)
CPT/HCPCS: 36415; 80053; 85025; 85610; 85730; 87086; 87088; 93005

== ENCOUNTER → 2021-11-20 02:39 | Outpatient (CLI) | payer BC, SELFPAY ==
[2021-11-20 11:38] LABS: SARS-CoV-2 RNA PCR Negative
== END ==
PROVIDERS: PCP Family Medicine; Visit Provider Urology
DX: Z01.812 Encounter for preprocedural laboratory examination (principal); Z20.822 Contact with and (suspected) exposure to COVID-19
CPT/HCPCS: C9803; U0003; U0005

== ENCOUNTER 2021-11-23 01:44 | Day surgery (SDC) | payer BC, SELFPAY ==
[2021-11-09 11:12] VITALS: BMI 35.6
--- NOTE | 2021-11-09 11:55 | PC.NURSE ---
Report to the Outpatient Waiting Room, entrance under the green pavilion located off [facility], at time 0600 on date _11/23/21 . OR Time: __729 . - You and your visitor will be asked a series of questions to screen for COVID 19 for your protection. - A mask is required within the hospital. Preoperative COVID Testing Requirements: No COVID Test needed if: (proof is required; if not received patient will have Rapid Test prior to entry) COVID TESTING AT 11/20/21 AT 0835 - Patient has received COVID Vaccine at least 14 days prior to procedure date or - Patient has positive COVID test result within last 90 days of surgery date. COVID Test needed if above criteria is not met If not COVID vaccinated a COVID test must be conducted within 72 hours of surgery and patient is asked to isolate self from time of testing until procedure. You will go to the [facility] for your COVID testing. The [facility] site is located at the corner of [address] [facility]. You will only be called if COVID results are positive and your surgeon may reschedule your elective surgery date. Patients may have clear liquids (water, carbonated beverages, clear teas, apple juice) until 3 hours prior to surgery with a maximum of 20 ounces. - No food from midnight until time of surgery - Take the following medications with a SIP of water the morning of surgery: __PROPRANOLOL,ALPRAZOLAM Medications to discontinue per physician ____NONE Date to take last dose Please no make-up, nail latvian, hairspray, perfume, deodorant, or body powder the day of surgery. No jewelry (including any body piercings) or valuables the day of surgery, leave them at home. Please take a shower or bath the night before, or the morning of, surgery with an antibacterial soap. Wear comfortable, loose fitting clothing. Children are encouraged to wear pajamas. - Jewelry must be removed prior to entering the operating room. Rings and piercings that are not removed may be cut off. - The hospital will not accept responsibility for valuables. - Please leave all valuables, including medications, at home the day of surgery. If you are going home after surgery, a licensed local driver must drive you home. - NO public transportation without another adult. - We recommend that an adult stay with you for 24 hours following discharge. - We also recommend that you do not drive, make important decision, drink alcoholic beverages, or take any drugs that were not prescribed by your health care provider for at least 24 hours after your discharge time. For Pediatric surgeries, we recommend two adults accompany the child home (only one inside the building at this time). One visitor will be allowed to accompany the patient into the hospital. Patients visitor will be instructed to remain with patient at all times or leave the building. We will allow the visitor to come back to the postoperative area when patient is ready. Follow any additional instructions given to you from your surgeon. VERBAL AND WRITTEN instructions given to ___PATIENT and asked if any additional questions and then verbalized understanding. Patient advised to call surgeon office or pre surgery nurse liaison [phone] if any additional questions.
[2021-11-09 12:28] VITALS: BP 113/65; PULSE 81; RESP 18; TEMP 36.6; O2SAT 99
--- NOTE | 2021-11-22 07:32 | PM.IMHP ---
H&P: HPI History of Present Illness Date/Time: 11/22/21 07:32 41 yo with dysfunctional uterine bleeding, uterine prolpase, CHARLIE Chief Complaint: POP/DUB/CHARLIE Review of Systems Review of Systems: All systems reviewed & are unremarkable except as noted in HPI and below PMFSH Past Medical History Medical History Arthritis History of herniated intervertebral disc Migraines POTS (postural orthostatic tachycardia syndrome) Small fiber neuropathy Surgical History Surgical History History of gastric restrictive surgery S/P lap band in 2008 which was removed in 2013. S/P Gastric sleeve by Dr. Sandoval 04/29/20 at [facility]. S/P cholecystectomy Family History Family History Mother Depression Anxiety COPD (chronic obstructive pulmonary disease) Grandparent Diabetes mellitus Family history of cardiovascular disease Grandparent Lung cancer TIA (transient ischemic attack) Social History Social History Social History: Mrs. Castellanos lives at home with her in [place], [place]. She has two children. 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 Smoking status: Never smoker Second hand tobacco smoke exposure: Yes Alcohol intake: never Substance use: never Substance use type: does not use Additional living arrangements comments: spouse Additional occupation/education comments: RN Gender identity (if verbalized by the patient): Female Sexual Orientation (if Verbalized by the Patient): Straight or Heterosexual Spiritual care concerns: No Meds Home Medications and Allergies Home Medications Medication Instructions Recorded Confirmed Type Nurtec ODT 75 mg PO ONCE PRN 06/23/20 11/09/21 History alprazolam 2 mg PO HS PRN 06/23/20 11/09/21 History eszopiclone 2 mg PO HS PRN 06/23/20 11/09/21 History trazodone 200 mg PO HS 06/23/20 11/09/21 History etonogestrel 0.12 mg-ethinyl 1 vag ring VAGINAL ONCE #3 ea 10/08/21 11/09/21 Rx estradiol 0.015 mg/24 hr vaginal ring hydroxychloroquine 200 mg tablet 200 mg PO HS 10/08/21 11/09/21 History atomoxetine 25 mg PO DAILY PRN 11/09/21 11/09/21 History propranolol 20 mg PO TID 11/09/21 11/09/21 History Allergies Allergy/AdvReac Type Severity Reaction Status Date / Time hydrocodone Allergy Intermediate Hives Verified 11/09/21 11:13 oseltamivir Allergy Intermediate Difficulty Verified 11/09/21 11:13 Breathing oxycodone Allergy Intermediate Hives Verified 11/09/21 11:13 Penicillins Allergy Intermediate Hives Verified 11/09/21 11:13 Exam Narrative: Obese NAD Normal breathing A+O x3 Cystocele to introitus Bruning at 0 + urethral mobility Assessment and Plan Assessment and plan (1) Uterine prolapse: Code(s): N81.4 - Uterovaginal prolapse, unspecified Status: Acute Assessment and Plan: Robotic Sacral Colpopexy (2) CHARLIE (stress urinary incontinence, female): Code(s): N39.3 - Stress incontinence (female) (male) Status: Acute Assessment and Plan: Urethral sling
[2021-11-23] VITALS (14 sets, daily range): BP systolic 89–110; BP diastolic 28–65; PULSE 79–92; RESP 15–20; TEMP 35.9–36.9; O2SAT 93–99
--- NOTE | 2021-11-23 06:55 | WPDANESEPPF ---
Anes - Initial Pre Proc Eval Procedure: Operation Date: 11/23/21 07:30 Proposed Procedures p Robotic Sacrocolpopexy, Urethral Sling - Jose G Lester MD s Robotic Assisted Laparoscopic Supracervical Hysterectomy with Bilateral Salpingectomy - Hari Martinez MD Date/Time: 11/23/21 06:55 Surgeon: Jose G Lester MD Pre Op Diagnosis: incomp uterovag prolapse, stress incont Patient Data Age: 41 Gender: F Height: 1.75 m Weight: 109.6 kg Last Vital Signs Temp 36.6 C 11/09/21 12:28 Pulse 81 11/09/21 12:28 Resp 18 11/09/21 12:28 BP 113/65 11/09/21 12:28 Pulse Ox 99 11/09/21 12:28 Allergies Allergy/AdvReac Type Severity Reaction Status Date / Time hydrocodone Allergy Intermediate Hives Verified 11/09/21 11:13 oseltamivir Allergy Intermediate Difficulty Verified 11/09/21 11:13 Breathing oxycodone Allergy Intermediate Hives Verified 11/09/21 11:13 Penicillins Allergy Intermediate Hives Verified 11/09/21 11:13 Home Medications Medication Instructions Recorded Confirmed Type Nurtec ODT 75 mg PO ONCE PRN 06/23/20 11/09/21 History alprazolam 2 mg PO HS PRN 06/23/20 11/09/21 History eszopiclone 2 mg PO HS PRN 06/23/20 11/09/21 History trazodone 200 mg PO HS 06/23/20 11/09/21 History etonogestrel 0.12 mg-ethinyl 1 vag ring VAGINAL ONCE #3 ea 10/08/21 11/09/21 Rx estradiol 0.015 mg/24 hr vaginal ring hydroxychloroquine 200 mg tablet 200 mg PO HS 10/08/21 11/09/21 History atomoxetine 25 mg PO DAILY PRN 11/09/21 11/09/21 History propranolol 20 mg PO TID 11/09/21 11/09/21 History Patient hx anesthesia problems: none and other (motion sickness) Family hx anesthesia problems: none Results Review: All pre-operative results and documents have been reviewed as part of the pre-operative evaluation. [facility] Past Medical History Medical History ADD (attention deficit disorder) Anxiety Arthritis History of herniated intervertebral disc Migraines POTS (postural orthostatic tachycardia syndrome) Small fiber neuropathy Surgical History Surgical History History of gastric restrictive surgery S/P lap band in 2008 which was removed in 2013. S/P Gastric sleeve by Dr. Sandoval 04/29/20 at [facility]. S/P cholecystectomy Family History Family History Mother Depression Anxiety COPD (chronic obstructive pulmonary disease) Grandparent Diabetes mellitus Family history of cardiovascular disease Grandparent Lung cancer TIA (transient ischemic attack) Social History Social History Social History: Mrs. Castellanos lives at home with her in [place], [place]. She has two children. 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 Smoking status: Never smoker Second hand tobacco smoke exposure: Yes Alcohol intake: never Substance use: never Substance use type: does not use Living arrangements: with family Additional living arrangements comments: spouse Additional occupation/education comments: RN Gender identity (if verbalized by the patient): Female Sexual Orientation (if Verbalized by the Patient): Straight or Heterosexual Spiritual care concerns: No Anes - Eval Final PreProcedure Day of Procedure 11/23/21 06:55 Patient weight: obese Heart: regular rate and rhythm Lungs: clear to auscultation Airway: Mallampati scale class II Neurological: alert and oriented Last oral intake: >/= 8 hours ASA classification: III Emergent: no Anesthetic plan: proceed Anesthesia type and monitoring: general ETT and standard monitoring Results Review: All pre-operative results and documents have been reviewed as part of th
[2021-11-23] MEDS: ACETAMINOPHEN 500 MG TABLET 1000 MG PO (07:09)
--- NOTE | 2021-11-23 07:09 | WPDHPUPDATE1 ---
History and Physical Update Update Date/Time: 11/23/21 07:09 History and Physical has been reviewed, including an updated exam of the patient. There are NO changes in the patient's condition. Risks, benefits, and alternatives have been discussed and questions answered. Patient agrees to proceed with procedure.
--- NOTE | 2021-11-23 07:18 | PM.IMHP ---
H&P: HPI History of Present Illness Date/Time: 11/23/21 07:18 41-year-old female presents with multiple complaints. Cycles have been heavy clotting cramping cycles lasting 5-7 days 3-5 days very heavy. The cycles have been reasonably well controlled with NuvaRing which she no longer desires to use this due to side effects of the pills. Therefore presents today for hysterectomy. We have discussed nonsurgical options and less invasive surgical options but she does desire to proceed with hysterectomy. Recent MRI for other reasons also showed multiple small fibroids. She does also complain of pelvic pressure fullness and urinary incontinence for which she has seen Dr. Lester and he will be proceeding with sacral colpopexy as well as T OT for the stress incontinence. Chief Complaint: Uterine fibroids Review of Systems Review of Systems: All systems reviewed & are unremarkable except as noted in HPI and below PMFSH Past Medical History Medical History ADD (attention deficit disorder) Anxiety Arthritis History of herniated intervertebral disc Migraines POTS (postural orthostatic tachycardia syndrome) Small fiber neuropathy Surgical History Surgical History History of gastric restrictive surgery S/P lap band in 2008 which was removed in 2013. S/P Gastric sleeve by Dr. Sandoval 04/29/20 at [facility]. S/P cholecystectomy Family History Family History Mother Depression Anxiety COPD (chronic obstructive pulmonary disease) Grandparent Diabetes mellitus Family history of cardiovascular disease Grandparent Lung cancer TIA (transient ischemic attack) Social History Social History Social History: Mrs. Castellanos lives at home with her in [place], [place]. She has two children. 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 Smoking status: Never smoker Second hand tobacco smoke exposure: Yes Alcohol intake: never Substance use: never Substance use type: does not use Living arrangements: with family Additional living arrangements comments: spouse Additional occupation/education comments: RN Gender identity (if verbalized by the patient): Female Sexual Orientation (if Verbalized by the Patient): Straight or Heterosexual Spiritual care concerns: No Meds Home Medications and Allergies Home Medications Medication Instructions Recorded Confirmed Type Nurtec ODT 75 mg PO ONCE PRN 06/23/20 11/23/21 History alprazolam 2 mg PO HS PRN 06/23/20 11/23/21 History eszopiclone 2 mg PO HS PRN 06/23/20 11/23/21 History trazodone 200 mg PO HS 06/23/20 11/23/21 History etonogestrel 0.12 mg-ethinyl 1 vag ring VAGINAL ONCE #3 ea 10/08/21 11/23/21 Rx estradiol 0.015 mg/24 hr vaginal ring hydroxychloroquine 200 mg tablet 200 mg PO HS 10/08/21 11/23/21 History atomoxetine 25 mg PO DAILY PRN 11/09/21 11/23/21 History propranolol 20 mg PO TID 11/09/21 11/23/21 History Allergies Allergy/AdvReac Type Severity Reaction Status Date / Time hydrocodone Allergy Intermediate Hives Verified 11/23/21 06:58 oseltamivir Allergy Intermediate Difficulty Verified 11/23/21 06:58 Breathing oxycodone Allergy Intermediate Hives Verified 11/23/21 06:58 Penicillins Allergy Intermediate Hives Verified 11/23/21 06:58 Exam Const: General: cooperative, healthy appearing and comfortable Resp: Effort & Inspection: normal respiratory effort Auscultation: clear to auscultation bilaterally Cardio: Rate: regular rate Rhythm: regular rhythm GI: Auscultation: normal bowel sounds : External Female Exam: normal external appearance Speculum Exam - Vagina: normal appearanc
--- NOTE | 2021-11-23 07:23 | WPDHPUPDATE1 ---
History and Physical Update Update Date/Time: 11/23/21 07:23 History and Physical has been reviewed, including an updated exam of the patient. There are NO changes in the patient's condition. Risks, benefits, and alternatives have been discussed and questions answered. Patient agrees to proceed with procedure.
[2021-11-23] MEDS: LACTATED RINGERS 1,000 ML 30 ML IV CONT ×2 (07:25→11:11)
[2021-11-23] MEDS: KETOROLAC 15 MG/ML VIAL (*BKC) IV PUSH (07:30)
[2021-11-23] MEDS: SCOPOLAMINE 1.5 MG PATCH TRANSDERM (07:35)
[2021-11-23] MEDS: ceFAZolin 2 GM/D5W 50 ML 2 GM/50 ML BAG IVPB (07:35)
[2021-11-23] MEDS: metroNIDAZOLE 500 MG/ISO 100ML 500 MG/100 ML BAG 100 MG IVPB ×2 (07:40→20:07)
--- NOTE | 2021-11-23 08:01 | SUR.PREOP ---
0800- BLOOD BANK STATED TYPE AND SCREEN HEMOLYZED. CALLED INTO THE OR AND UPDATED DR. SNIDER. IF NEEDED RN IN OR TO RE DRAW TYPE AND SCREEN. DR. SNIDER STATED HE WOULD TALK TO DR. ALEXANDRE AND IF NEEDED RE DRAW THEN OFFICE DIRECTOR WOULD SEND A NEW TYPE AND SCREEN DOWN.
--- NOTE | 2021-11-23 09:07 | PM.OP ---
Procedure Note - Brief Procedure Note - Brief Date of procedure: 11/23/21 Pre-op diagnosis: incomp uterovag prolapse, stress incont 1. Menometrorrhagia 2. Fibroid uterus Post-op diagnosis: Same Procedure performed: Robotic assisted supracervical hysterectomy with salpingectomy Description of procedure: Patient was prepped and draped as procedure. Trocar sites placed by Dr. Lester. Once trocars placed pelvis was inspected notation moderately enlarged uterus multiple small fibroids appreciated. Cautery was used to cauterize the utero-ovarian ligaments which were then incised. Next the broad ligament was cauterized cut/the bladder flap developed and posteriorly also dissected to skeletonize uterine vessels. Uterine vessel was then cauterized and cut and cervical stump was then created by amputating the uterus at level of the cervix. Prior to this uterus was bivalved for easier removal. Anesthesia: GLMA Surgeon: Hari Martinez MD Estimated blood loss (mL): 50 Drains: No Packing: No Pathology: Yes Complications: No immediate complications Condition: Stable Disposition: PACU Findings: Moderately enlarged uterus no other abnormalities are noted. Small fibroids are noted as well.
--- NOTE | 2021-11-23 11:12 | W.PM.PROC2 ---
Procedure Note - Detailed Date of Procedure 11/23/21 Pre-op Diagnosis incomplete uterovaginal prolapse, stress incontinence Post-op Diagnosis Same Procedure Performed Robotic assisted laparoscopic sacral colpopexy Urethral sling Cystoscopy Surgeon Jose G Lester MD Anesthesia General Indications This is a woman with uterine prolapse as well as stress incontinence. She desires surgical correction. She is here for the above. She understands risks of bleeding, infection, diskitis, damage to surrounding organs, bowel injury, bowel obstruction, mesh related complications including exposure and extrusion, postoperative voiding dysfunction including incontinence and retention, need for ancillary procedures, dyspareunia, recurrence of prolapse, and other perioperative intraoperative postoperative complications. She agrees to proceed. Findings See below Description of Procedure She was correctly identified. Informed consent obtained. She from the operating room. She was given general anesthesia. She was given appropriate perioperative antibiotics. She was placed a low lithotomy position. Pressure points were padded. A time-out performed. I marked out the skin 3 fingerbreadths cephalad to the umbilicus. I anesthetized the skin. I incised the skin. I dissected down to the fascia. I grasped the fascia with Skyler clamps. I entered the fascia sharply in a Lagunas type technique. I placed sutures for later fascial closure. I placed a midline trocar. I examined the abdomen. There is no sign of any injury. Under direct vision I placed 2 additional trocars in the right upper quadrant and 2 additional trocars the left upper quadrant. There was a small amount of adhesion of omentum to the anterior abdominal wall which was taken down sharply. There is no sign of any injury to underlying organs. She was placed in steep Trendelenburg. The robot was docked. Her diesel scoop operator completed their portion of the procedure. Please see that operative report for details. I then sat at the console. The Sizer in the vagina created plane on the anterior and posterior vaginal wall. I took great care not to injure the vagina, bladder, or rectum. I introduced the mesh into the abdomen. I sewed the anterior leaflet of mesh on the anterior vaginal wall. I sewed the posterior leaflet of mesh on the posterior vaginal wall. This was done with several sutures of 2 0 Edson-Regino. I reflected the colon laterally. I opened the posterior peritoneum over the sacral promontory. I carried this into the cul-de-sac. I freed up the edges for later retroperitonealization. I located the anterior longitudinal ligament the sacrum. I cleaned off all fatty tissues. I then tensioned my mesh appropriately. I did a vaginal exam the bedside. I assured prolapse reduction without undue tension. I then sewed the proximal leaflet of mesh onto the anterior longitudinal ligament of the sacrum with several sutures of 2 0 Edson-Regino. I then used a 2 0 Monocryl to completely and meticulously retroperitonealized all mesh. I allowed the colon to go back to its normal anatomic location. There is no sign of any impingement. The specimen was then removed. All ports removed. Fascia was tied down. Skin was closed with Monocryl and surgical glue. She was repositioned and prepped for urethral sling. Examination revealed excellent prolapse reduction without undue tensioning on the anterior vaginal wall. I marked out the inner thigh incisions. I anesthetized the skin and made the incisions. I then anesthetized the anterior vaginal wall at the mid urethra. I made a 1 cm incision. Of note the tissue quality here was poor. The tissues were friable. I took great care during the dissection to preserve as much tissue as possible to avoid mesh exposure. I dissected out laterally taking great care not to injure the urethra or the vaginal wall. I passed the helical trocars. I did this 1st on the left a
--- NOTE | 2021-11-23 11:21 | SUR.PHASEI ---
50 MCG FENTANYL GIVEN IVP PER DR. ARMENTA IN PACU.
[2021-11-23] MEDS: fentaNYL CITRATE INJ (*CRX) 100 MCG/2 ML VIAL 25 MCG IV PUSH ×4 (11:39→11:56)
--- NOTE | 2021-11-23 12:50 | PC.NURSE ---
Patient transfered to the floor per bed. Patient oriented to room, call light within reach.
[2021-11-23] MEDS: KCL 20 MEQ/D5/0.45% SOD CHL 1,000 ML 100 ML IV CONT (13:17)
[2021-11-23] MEDS: MORPHINE SULFATE (*CRX) 2 MG/ML INJ IV PUSH ×2 (13:20→19:02)
[2021-11-23] MEDS: KETOROLAC 30 MG/ML VIAL (*BKC) IV PUSH ×2 (16:02→23:34)
[2021-11-23] MEDS: PROPRANOLOL HCL 20 MG TABLET PO (23:32)
[2021-11-23] MEDS: traZODone HCL 50 MG TABLET 200 MG PO (23:33)
[2021-11-24 03:15] VITALS: BP 87/49; PULSE 76; RESP 16; TEMP 37; O2SAT 96
[2021-11-24] MEDS: metroNIDAZOLE 500 MG/ISO 100ML 500 MG/100 ML BAG 100 MG IVPB (03:30)
[2021-11-24] MEDS: traMADol HCL (*CRX) 50 MG TABLET PO ×2 (03:44→09:11)
[2021-11-24 08:00] VITALS: BP 88/49; PULSE 68; RESP 16; TEMP 36.4; O2SAT 97
--- NOTE | 2021-11-24 08:15 | PC.NURSE ---
Bladder scan done per MD orders, volume was 103cc's. No further orders for scans
--- NOTE | 2021-11-24 08:15 | PM.GYNPNOP ---
[employer] - A/P Assessment and plan (1) Uterine fibroid: Code(s): D25.9 - Leiomyoma of uterus, unspecified Status: Acute (2) Menometrorrhagia: Code(s): N92.1 - Excessive and frequent menstruation with irregular cycle Status: Acute (3) Uterine prolapse: Code(s): N81.4 - Uterovaginal prolapse, unspecified Status: Acute (4) CHARLIE (stress urinary incontinence, female): Code(s): N39.3 - Stress incontinence (female) (male) Status: Acute (5) Prolapse of female pelvic organs: Code(s): N81.9 - Female genital prolapse, unspecified Status: Acute Assessment and Plan: at this point will check a postvoid residual after she has done this. If all according to plan will send home later today with follow-up having been discussed with the patient already regarding myself and Dr. Lester. Postoperative Procedures: Procedures Operation Date: 11/23/21 07:30 Actual Procedure Side Surgeon p Robotic Sacrocolpopexy, Urethral Sling Jose G Lester MD s Robotic Assisted Laparoscopic Supracervical Hysterectomy with Bilateral Salpingectomy Hari Martinez MD Time Spent With Patient Time: Total time spent is greater than 50% in coordination of care (as documented) at patient's floor/unit and/or counseling patient: Time with patient: less than 15 minutes [employer]- PN:Subj Post-Op Subjective Date/time seen: 11/24/21 08:15 41-year-old female 1 day status post hysterectomy with sacral colpopexy and vaginal sling. This morning she is ambulated and pain is well controlled. Diet tolerated. Catheter has been removed and she has yet to void. Exam Const: General: cooperative, healthy appearing and comfortable GI: Inspection: normal to inspection and incision ( mild tender. No cellulitis no masses.) [employer] - PN: Obj Data Vital Signs Vital Signs: Vital Signs - 24 hr 11/23/21 11:11 11/23/21 11:35 11/23/21 11:50 Temperature 96.9 F L Pulse Rate 81 79 81 Respiratory Rate 16 16 20 Blood Pressure 97/28 L 99/55 L 96/65 L Pulse Oximetry 98 99 94 11/23/21 12:05 11/23/21 12:20 11/23/21 12:35 Temperature Pulse Rate 79 83 83 Respiratory Rate 16 16 15 Blood Pressure 103/60 104/65 106/60 Pulse Oximetry 94 93 94 11/23/21 12:50 11/23/21 13:23 11/23/21 15:10 Temperature 97.4 F L 98.4 F Pulse Rate 88 88 92 Respiratory Rate 16 18 Blood Pressure 89/50 L 89/52 L Pulse Oximetry 95 98 11/23/21 15:30 11/23/21 20:00 11/23/21 23:30 Temperature 97.5 F L 97.4 F L Pulse Rate 87 84 Respiratory Rate 18 16 Blood Pressure 94/55 L 110/55 L Pulse Oximetry 98 98 99 11/23/21 23:32 11/24/21 03:15 Temperature 98.6 F Pulse Rate 85 76 Respiratory Rate 16 Blood Pressure 87/49 L Pulse Oximetry 96 Intake/Output Intake/Output: Intake & Output 11/21/21 11/22/21 11/23/21 11/24/21 23:59 23:59 23:59 23:59 Intake Total 2950 Output Total 1400 1400 Balance 1550 -1400 Meds/Results Medications: Active Medications Generic Name Dose Route Start Last Admin Trade Name Freq PRN Reason Stop Dose Admin Acetaminophen 650 mg 11/24/21 13:00 Acetaminophen 325 Mg Tablet PO Q4H PRN Mild Pain (1-3) or Fever Alprazolam 2 mg 11/23/21 12:39 Alprazolam (*Crx) 0.5 Mg Tablet PO HS PRN Anxiety Diphenhydramine HCl 25 mg 11/23/21 12:39 Diphenhydramine Hcl Inj 50 Mg/Ml Vial IV PUSH Q6H PRN Itching Docusate Sodium 100 mg 11/23/21 12:39 11/23/21 13:33 Docusate Sodium 100 Mg Capsule PO Not Given DAILY TRIP Enoxaparin Sodium 30 mg 11/24/21 09:00 Enoxaparin 30 Mg/0.3 Ml Syringe SUB-Q DAILY TRIP Hydroxychloroquine Sulfate 200 mg 11/23/21 21:00 Hydroxychloroquine Sulfate 200 Mg Tablet PO HS TRIP Metronidazole 500 mg in 100 mls @ 100 mls/hr 11/23/21 16:00 11/24/21 03:30 Flagyl 500 Mg/Iso Soln 100 Ml IVPB 100 mls/hr Q8H TRIP Administration Potassium Chloride/Dextrose/Sod Cl 1,000 mls @ 100
[2021-11-24] MEDS: DOCUSATE SODIUM 100 MG CAPSULE PO (09:10)
[2021-11-24 09:11] VITALS: PULSE 80
[2021-11-24] MEDS: PROPRANOLOL HCL 20 MG TABLET PO (09:11)
[2021-11-24] MEDS: levoFLOXacin 500 MG TABLET PO (09:11)
[2021-11-24] MEDS: ENOXAPARIN 30 MG/0.3 ML SYRINGE SUB-Q (09:12)
--- NOTE | 2021-11-24 09:58 | WPDANESPN ---
Anes - Prog Note Post-Op Date/Time: 11/24/21 09:59 Cardiovascular status: normal Respiratory status: normal Airway patency: baseline Mental status: baseline Post-Op hydration status: normal Vital Signs: Last Vital Signs Temp 97.6 F 11/24/21 08:00 Pulse 80 11/24/21 09:11 Resp 16 11/24/21 08:00 BP 88/49 L 11/24/21 08:00 Pulse Ox 97 11/24/21 08:00 Pain Score (VAS): 4 I/O: Intake & Output 11/23/21 11/24/21 11/24/21 23:59 07:59 15:59 Intake Total 700 Output Total 1150 1400 100 Balance -450 -1400 -100 Post-procedural complaints: none and other (sore throat) Patient Feedback: Patient satisfied with anesthetic care.
== END 2021-11-24 11:25 | disposition home or self-care (01) ==
LOC: ANHSURGERY 07:31 → ANHOB2 12:50
PROVIDERS: Obstetrics & Gynecology; PCP Family Medicine; Visit Provider Urology
PROC: (CPT 57425; principal; 2021-11-23 07:30)
PROC: 0UT94ZZ Resection of Uterus, Percutaneous Endoscopic Approach (ICD-10-PCS; CPT 57425; 2021-11-23 07:30)
DX: N81.2 Incomplete uterovaginal prolapse (principal); N39.3 Stress incontinence (female) (male); N92.1 Excessive and frequent menstruation with irregular cycle; N80.0 Endometriosis of uterus; D25.1 Intramural leiomyoma of uterus; D25.2 Subserosal leiomyoma of uterus; I49.8 Other specified cardiac arrhythmias; G62.9 Polyneuropathy, unspecified; Z98.84 Bariatric surgery status; E66.9 Obesity, unspecified; Z68.35 Body mass index [BMI] 35.0-35.9, adult
CPT/HCPCS: 57288; 57425; 58542; S2900 ×2; 36415; 88307; 99199; A9270; C1771; C1781; C9290; J0131; J0690; J1200; J1650; J1885; J2250; J2270; J2704; J2710; J3010; J3480; J7030; J7120